=== PATIENT | male | born 1975 | race African-American/Black ===

== ENCOUNTER 2023-07-05 08:46 | Emergency (ER) | payer BC, SELFPAY ==
[2023-07-05 08:46] VITALS: BP 154/109; PULSE 102; RESP 16; TEMP 36.2; O2SAT 98; BMI 26.9
[2023-07-05 09:00] VITALS: O2SAT 100
--- NOTE | 2023-07-05 09:20 | EDS_ITS ---
HPI History of Present Illness Chief Complaint: Cold Sx Informant: patient Narrative Narrative: Patient is a 47-year-old male with a significant past medical history presenting with about 24 hours of flu/COVID symptoms as well as a couple days of left lower back pain. Patient states that he started having a cough last night and has had associated nasal congestion, productive sputum that is yellow and an itchy throat which is mostly when he coughs. Denies any ear pain or fevers. He also notes that 3 days ago help someone move and since has been having some mild lower left back pain. He states it is better when he is at rest/resolved and worse with movement. Is not taking anything for any of his symptoms. He is requesting a work note. Denies any sick contacts. Denies any rash. No GI or symptoms reported. No report of any numbness or weakness going down his legs or bowel or bladder incontinence. No other complaints or concerns reported at this time. [facility] NK 07/05/23 [History Last Taken Unknown] Allergy/AdvReac Type Severity Reaction Status Date / Time No Known Allergies Allergy Verified 07/05/23 08:46 Social History Smoking Status: Current every day smoker tobacco type: cigars ROS ROS ED Constitutional Constitutional ED: Denies chills or fever(s) Eyes Eyes: Denies blurry vision ENT ENT ED: Reports sore throat and other Details: Nasal congestion ; Denies ear pain Cardiovascular Cardiovascular: Denies chest pain Respiratory/Chest Respiratory/Chest: Reports cough and sputum; Denies dyspnea or dyspnea on exertion Gastrointestinal Gastrointestinal: Denies abdominal pain, diarrhea, nausea or vomiting Genitourinary Genitourinary ED: Denies dysuria Musculoskeletal Musculoskeletal: Reports back pain; Denies arthralgias or myalgias Integumentary Denies rash Neurologic Neurologic: Denies headache(s), paresthesias or weakness EXAM Physical Exam Const Vital Signs: 07/05/23 08:46 07/05/23 08:58 07/05/23 09:00 Temperature 97.1 F L Temperature Source Temporal Pulse Rate 102 H Respiratory Rate 16 Respiratory Effort Normal Non-Labored Respiratory Depth Normal Respiratory Pattern Normal Normal Blood Pressure 154/109 H Blood Pressure Mean 124 Pulse Ox 98 Oxygen Delivery Method Room Air Room Air Positive well nourished and well developed General Appearance ED: well developed and NAD HEENT Reports moist mucous membranes HEENT Narrative: Nasal congestion present Eyes PERRL and EOMs intact bilaterally Neck supple and no JVD Chest Wall inspection of chest normal and palpation of chest normal Resp normal respiratory effort and clear to auscultation bilaterally Auscultation: Negative for wheezes or diminished lung sounds Cardio regular rate, regular rhythm and no murmurs GI normal to inspection, nondistended, normoactive bowel sounds and non-tender Back/Spine Back/Spine Narrative: No midline tenderness. Mild left lumbar paraspinal tenderness at approximately L4/L5. Thoracic Spine / Upper Back: Negative for thoracic spinal tenderness Lumbar Spine / Lower Back: Negative for lumbar spinal tenderness Extremity normal to inspection General Extremety ED: Negative for edema or tenderness General Extremity: Negative for edema Neuro oriented x3 and CN's II-XII intact bilaterally Sensorium / Orientation: alert Motor Exam: Negative for general weakness Psych mental status grossly normal Skin no rashes or lesions noted and no wounds MDM MDM MDM Narrative Medical decision making narrative: Patient evaluated for what sounds like a low back strain as well as URI symptoms. I will obtain COVID, flu as patient is flu positive will be given a more extended work note. He overall is well-appearing and likely has early viral symptoms and is main concern seems to be that he would like a work note. Back pain appears to be more of a lumbar strain and I do not appreciate any red flag findings on H&P. Is given dose of Motrin in the ER. Positive for influenza A. This fits his clinical picture. He is offered Tamiflu is on day 1 of symptoms but declined after discussing risk and benefits. Counseled take [id number] Tylenol cold and flu as well as Motrin for symptoms. Will be given a work note for the next 3 days. Counseled that he might feel worse, develop fevers and should rest and drink plenty fluids. He verbalized agreement understand this plan. Instructed to use Lidoderm patches as well as alternate Tylenol and ibuprofen as needed for his back strain. Discharged home in stable condition. Discharge Plan Triage Chief Complaint: Cold Sx ED Provider: Donna Perez Dx/Rx/DC Orders Clinical Impression: Lumbar strain, Influenza A Instructions: ED Back Sprain/Strain, ED Influenza (Adult) Prescriptions: No Action NK Stand Alone Forms: ED Work / School Excuse Primary Care Provider: Care Physician,No Primary Referrals: Obie Cherry MD [Med Staff - Label Maker] - As Needed NOT,DEFINED [Non-Staff] - Activity Restrictions/Additional Instructions: Drink plenty of fluids. Alternate Tylenol with ibuprofen for symptoms. He may also take [id number] Tylenol cold and flu medication. If you need to you can use Lidoderm patches as needed for your back pain. Make sure you are resting. Disposition Disposition: Home, Self Care
[2023-07-05] MEDS: Ibuprofen 600 MG Tablet PO (09:44)
[2023-07-05 10:31] VITALS: BP 150/98; PULSE 74; RESP 16; TEMP 36.2; O2SAT 95
== END 2023-07-05 10:32 | disposition home or self-care (01) ==
PROVIDERS: Emergency Provider Emergency Medicine; Visit Provider Emergency Medicine
DX: J10.1 Influenza due to other identified influenza virus with other respiratory manifestations (principal); F17.290 Nicotine dependence, other tobacco product, uncomplicated; S39.012A Strain of muscle, fascia and tendon of lower back, initial encounter; M54.9 Dorsalgia, unspecified; X58.XXXA Exposure to other specified factors, initial encounter
CPT/HCPCS: 87631; 99283